=== PATIENT | female | born 1940 | race Asian ===

== ENCOUNTER 2016-08-11 07:56 | Outpatient (CLI) | payer MEDICARE, MEDICAID | END 2016-08-11 23:59 | disposition home or self-care (01) | LOC: WOU 07:56 | PROVIDERS: ATTEND Podiatrist Foot & Ankle Surgery | DX: E11.610 Type 2 diabetes mellitus with diabetic neuropathic arthropathy (principal); E11.42 Type 2 diabetes mellitus with diabetic polyneuropathy; B35.1 Tinea unguium; R26.89 Other abnormalities of gait and mobility; Z89.512 Acquired absence of left leg below knee | CPT/HCPCS: G0463 ==